=== PATIENT | female | born 2000 | race Caucasian/White ===

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

== ENCOUNTER 2021-12-26 10:10 | Emergency (ER) | payer OTHER, SELFPAY ==
[2021-12-26] MEDS ORDERED: Morphine 10 MG/ML VIAL ONE (11:38)
[2021-12-26] MEDS ORDERED: Lidocaine 1% PF 5 ML VIAL ONE (14:10)
[2021-12-26] MEDS ORDERED: Ketamine 50 MG/ML (10ML VIAL) ONE (14:16)
== END 2021-12-26 15:54 | disposition home or self-care (01) ==
LOC: ERS 10:10
DX: N75.1 Abscess of Bartholin's gland (principal); F17.290 Nicotine dependence, other tobacco product, uncomplicated
CPT/HCPCS: 56420; 94760; 96372; 99152; J2270